=== PATIENT | male | born 1990 | race African-American/Black ===

== ENCOUNTER 2018-07-17 15:36 | Emergency (ER) | payer MEDICAID ==
[~2018-07-17] VITALS: Ht 185.4 cm; Wt 86.4 kg
--- NOTE | ~2018-07-17 | OP ---
PATIENT NAME: JORDAN DOLL MEDICAL RECORD: [id number] :92 LOCATION:. ADMISSION DATE: SURGEON: CAROLINE RBOOKS MD DATE OF OPERATION: 07/17/2018 HISTORY: Mr. Pope is a 28-year-old male. 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 He was transferred in from [place] with dislocated jaw past several hours. PHYSICAL EXAMINATION: He is alert, healthy, and strong young male. Jaw stuck open just. PROCEDURE: I immediately manually reduced him with thumbs on the molars, reduced the left side first and then the right side. Right side is a little stiffer. Mouth closed nicely. No evidence of TMJ disruption or problem there. It gave him lot of relief. IMPRESSION: Dislocated mandible, reduced. Return p.r.n. TRANSINT:[id number] Voice Confirmation ID: [id number] DOCUMENT ID: [id number] CAROLINE BROOKS MD at 1733 CC: [id number] DICTATION DATE: 07/17/18 1620 MANAGER MAINTENANCE: 07/17/18 1749 DEP ER 07/17/18 [facility] [address] [id number]
[2018-07-17 15:41] VITALS: Ht 185.4 cm; Wt 86.4 kg
[2018-07-17] MEDS ORDERED: NORCO 7.5/325 T1 TA1 PO (16:54)
[2018-07-17 17:40] VITALS: BP 126/76
== END 2018-07-17 17:41 | disposition home or self-care (01) ==
LOC: D.ER 15:36
DX: S03.00XA Dislocation of jaw, unspecified side, initial encounter (principal); X58.XXXA Exposure to other specified factors, initial encounter; Y93.89 Activity, other specified; Y92.89 Other specified places as the place of occurrence of the external cause